=== PATIENT | female | born 1975 | race Caucasian/White ===

== ENCOUNTER 2018-10-16 23:48 | Emergency (ER) | payer BC ==
[~2018-10-16] VITALS: Ht 160 cm; Wt 83.1 kg
--- NOTE | 2018-10-17 00:08 | NUR ---
MD TO BEDSIDE FOR PT EVAL COMPLETE. PT TO HAVE IV AND MEDS. LAB AT BEDSIDE FOR BLOOD DRAW.
[2018-10-17] MEDS ORDERED: MORPHINE SULFATE 4 MG/ML, 1ML ONE (00:09)
[2018-10-17] MEDS ORDERED: ONDANSETRON 2MG/ML, 2ML ONE (00:09)
--- NOTE | 2018-10-17 00:10 | NUR ---
IV PLACED, PT RECIEVED MEDS PER ORDERS, SEE EMAR. VSS. PT AWAITING US.
[2018-10-17 00:25] LABS: BASOPHILS # (AUTO) 0.08 x10^3/uL (0-0.1); BASOPHILS % (AUTO) 1 % (0-1); EOSINOPHILS # (AUTO) 0.16 x10^3/uL (0-0.4); EOSINOPHILS % (AUTO) 2 % (1-7); LYMPHOCYTES # (AUTO) 2.47 x10^3/uL (1-3.4); LYMPHOCYTES % (AUTO) 27 % (22-44); MD NO; MEAN CORPUSCULAR HEMOGLOBIN 29.4 pg (27.0-34.8); MEAN CORPUSCULAR HGB CONC 33.7 g/dL (32.4-35.8); MEAN CORPUSCULAR VOLUME 87.4 fL (80-100); MEAN PLATELET VOLUME 9.6 fL (7.4-10.4); MONOCYTES # (AUTO) 0.68 x10^3/uL (0.2-0.8); MONOCYTES % (AUTO) 8 % (2-9); NEUTROPHILS # (AUTO) 5.75 x10^3/uL (1.8-6.8); NEUTROPHILS % (AUTO) 63 % (42-75); PLATELET COUNT 233 x10^3/uL (130-400); RED CELL DISTRIBUTION WIDTH 13.3 % (9.6-15.2)
[2018-10-17] MEDS ORDERED: MORPHINE SULFATE 4 MG/ML, 1ML IVPush PRN (00:30)
[2018-10-17] MEDS ORDERED: ONDANSETRON 2MG/ML, 2ML IVPush ONE (00:30)
[2018-10-17] MEDS ORDERED: SODIUM CHLORIDE FLUSH 10ML SYR IVF ONE (00:30)
[2018-10-17 00:31] LABS: ALANINE AMINOTRANSFERASE 21 U/L (12-78); ALBUMIN 3.7 g/dL (3.4-5.0); ANION GAP 6 mmol/L (5-15); CALCIUM 8.2 mg/dL (8.5-10.1); CHLORIDE 108 mmol/L (98-107); CREATININE 0.74 mg/dL (0.55-1.02)
[2018-10-17 00:36] LABS: ALKALINE PHOSPHATASE 130 U/L (45-117); BILIRUBIN,TOTAL 0.3 mg/dL (0.2-1.0); TOTAL PROTEIN 7.6 g/dL (6.4-8.2)
--- NOTE | 2018-10-17 00:45 | NUR ---
PT TO US.
--- NOTE | 2018-10-17 01:00 | NUR ---
PT RETURN FROM US, RESTING IN ROOM, FAMILY AT BEDSIDE.
--- NOTE | 2018-10-17 01:18 | NUR ---
PT REPORTS IMPROVED PAIN, VSS. PT AMBULATES TO RESTROOM WITH STEADY GAIT FOR URINE COLLECTION.
--- NOTE | 2018-10-17 01:44 | NUR ---
URINE SENT TO LAB. REPORT TO LULY ARORA FOR LUNCH RELIEF.
[2018-10-17 01:51] LABS: CULTURE INDICATED? YES; MICROSCOPIC AUTO
[2018-10-17 02:15] VITALS: BP 129/74
== END 2018-10-17 02:20 | disposition home or self-care (01) ==
LOC: ED 10-17 00:37
DX: K80.70 Calculus of gallbladder and bile duct without cholecystitis without obstruction (principal)
CPT/HCPCS: 36415; 76700; 80053; 81001; 83690; 84703; 85025; 87086; 96374; 96375; 99284; J2405

== ENCOUNTER 2018-11-06 14:24 | Outpatient (CLI) | payer BC ==
[2018-11-06] MEDS ORDERED: SUMA100T4 PO (14:54)
[2018-11-06] MEDS ORDERED: OMEP40CA6 PO (14:54)
[2018-11-06] MEDS ORDERED: NORT10CA PO (14:54)
[2018-11-06] MEDS ORDERED: PROMETHAZINE (14:54)
== END 2018-11-06 23:59 | disposition home or self-care (01) ==
LOC: STAR 14:24
PROVIDERS: ATTEND Surgery
DX: Z02.9 Encounter for administrative examinations, unspecified (principal)

== ENCOUNTER 2018-11-11 05:47 | Day surgery (SDC) | payer BC ==
[2018-11-06 14:49] VITALS: BP 128/76
[~2018-11-11] VITALS: Ht 160 cm; Wt 82.0 kg
[~2018-11-11 05:47] MED LIST: NORT10CA PO; OMEP40CA6 PO; PROMETHAZINE; SUMA100T4 PO
[2018-11-11] MEDS ORDERED: LACTATED RINGERS 1,000 ML IV SCH (06:45)
[2018-11-11] MEDS ORDERED: BUPIVACAINE/PF-EPI 0.5% 1:200K ONE (06:46)
[2018-11-11 06:47] VITALS: BP 128/76
[2018-11-11 06:50] LABS: HCG UR SG 1.011 (1.003-1.030)
[2018-11-11] MEDS ORDERED: FENTANYL PF 250 MCG/5ML ONE (07:18)
[2018-11-11] MEDS ORDERED: MIDAZOLAM 1 MG/ML, 2ML ONE (07:18)
[2018-11-11] MEDS ORDERED: LIDOCAINE-MPF 2% ,5ML ONE (07:20)
[2018-11-11] MEDS ORDERED: DEXAMETHASONE 4 MG/ML, 5ML ONE (07:20)
[2018-11-11] MEDS ORDERED: PROPOFOL 10 MG/ML, 20ML ONE (08:00)
[2018-11-11] MEDS ORDERED: SUCCINYLCHOLINE 20 MG/ML, 10ML ONE (08:00)
[2018-11-11] MEDS ORDERED: GLYCOPYRROLATE 0.2MG/1ML, 5ML ONE (08:00)
[2018-11-11] MEDS ORDERED: NEOSTIGMINE 1 MG/ML, 10ML ONE (08:00)
[2018-11-11] MEDS ORDERED: CEFAZOLIN 1,000 MG ONE (08:00)
[2018-11-11] MEDS ORDERED: ROCURONIUM 10MG/ML,5ML ONE (08:00)
[2018-11-11] MEDS ORDERED: ONDANSETRON 2MG/ML, 2ML ONE (08:00)
[2018-11-11] MEDS ORDERED: DIAZEPAM 5 MG/ML, 2ML IVPush PRN (08:30)
[2018-11-11] MEDS ORDERED: OXYcodone 5 MG/5 ML ORAL.SOL UDC PO PRN (08:30)
[2018-11-11] MEDS ORDERED: PROMETHAZINE 25 MG/ML, 1ML IV PRN (08:30)
[2018-11-11] MEDS ORDERED: ACETAMINOPHEN 325 MG TABLET PO PRN (08:30)
[2018-11-11] MEDS ORDERED: ONDANSETRON 2MG/ML, 2ML IV PRN (08:30)
[2018-11-11] MEDS ORDERED: HYDROmorphone 2 MG/ML, 1ML IVPush PRN (08:30)
[2018-11-11] MEDS ORDERED: ONDANSETRON ODT 8 MG PO PRN (08:30)
[2018-11-11] MEDS ORDERED: FENTANYL PF 100 MCG/2ML IV PRN (08:30)
[2018-11-11] MEDS ORDERED: OXYcodone 5 MG/5 ML ORAL.SOL UDC ONE (08:37)
[2018-11-11] MEDS ORDERED: KETOROLAC 30 MG/1 ML ONE (08:37)
[2018-11-11] MEDS ORDERED: FENTANYL PF 100 MCG/2ML ONE (08:37)
[2018-11-11] MEDS ORDERED: KETOROLAC 30 MG/1 ML IVPush ONE (09:00)
[2018-11-11] MEDS ORDERED: KETOROLAC 30 MG/1 ML IVPush PRN (09:00)
== END 2018-11-11 11:36 | disposition home or self-care (01) ==
LOC: OUT 05:47
PROVIDERS: ATTEND Surgery
DX: K80.10 Calculus of gallbladder with chronic cholecystitis without obstruction (principal); K21.9 Gastro-esophageal reflux disease without esophagitis; G43.909 Migraine, unspecified, not intractable, without status migrainosus; Z98.51 Tubal ligation status; Z98.890 Other specified postprocedural states; Z88.5 Allergy status to narcotic agent
CPT/HCPCS: 47562; 81025; 88304; J0330; J0690; J1100; J1885; J2250; J2405; J2704; J2710; J3010; J3490; J7120

== ENCOUNTER 2018-11-12 03:38 | Emergency (ER) | payer BC ==
[2018-11-12] MEDS ORDERED: SODIUM CHLORIDE 0.9% 1,000ML IVBOLUS ONE (04:00)
[2018-11-12] MEDS ORDERED: PROMETHAZINE 25 MG/ML, 1ML IM ONE (04:00)
[2018-11-12] MEDS ORDERED: ONDANSETRON 2MG/ML, 2ML IVPush ONE (04:00)
[2018-11-12] MEDS ORDERED: SODIUM CHLORIDE FLUSH 10ML SYR IVF ONE (04:00)
[2018-11-12] MEDS ORDERED: MORPHINE SULFATE 4 MG/ML, 1ML IVPush PRN (04:00)
[2018-11-12] MEDS ORDERED: ONDANSETRON 2MG/ML, 2ML ONE (04:01)
[2018-11-12] MEDS ORDERED: PROMETHAZINE 25 MG/ML, 1ML ONE (04:01)
[2018-11-12] MEDS ORDERED: MORPHINE SULFATE 4 MG/ML, 1ML ONE (04:02)
--- NOTE | 2018-11-12 04:14 | NUR ---
PT HERE FOR N/V, HEADACHE AND PAIN POST OP. PIV STARTED AND PT MEDICATED. FLUIDS RUNNING. VSS. LAB AT BEDSIDE. CALL LIGHT IN REACH
[2018-11-12 04:28] LABS: BASOPHILS # (AUTO) 0.01 x10^3/uL (0-0.1); BASOPHILS % (AUTO) 0 % (0-1); EOSINOPHILS % (AUTO) 0 % (1-7); LYMPHOCYTES # (AUTO) 0.87 x10^3/uL (1-3.4); LYMPHOCYTES % (AUTO) 8 % (22-44); MD NO; MEAN CORPUSCULAR HEMOGLOBIN 29.3 pg (27.0-34.8); MEAN CORPUSCULAR HGB CONC 33.3 g/dL (32.4-35.8); MEAN CORPUSCULAR VOLUME 87.8 fL (80-100); MEAN PLATELET VOLUME 9.7 fL (7.4-10.4); MONOCYTES # (AUTO) 0.54 x10^3/uL (0.2-0.8); MONOCYTES % (AUTO) 5 % (2-9); NEUTROPHILS # (AUTO) 9.73 x10^3/uL (1.8-6.8); NEUTROPHILS % (AUTO) 87 % (42-75); PLATELET COUNT 216 x10^3/uL (130-400); RED BLOOD COUNT 4.65 x10^6/uL (3.82-5.3); RED CELL DISTRIBUTION WIDTH 13.3 % (9.6-15.2)
[2018-11-12 04:39] LABS: ALBUMIN 3.5 g/dL (3.4-5.0); ANION GAP 9 mmol/L (5-15); CALCIUM 8.3 mg/dL (8.5-10.1); CHLORIDE 105 mmol/L (98-107)
[2018-11-12 04:45] LABS: ALANINE AMINOTRANSFERASE 51 U/L (12-78); ALKALINE PHOSPHATASE 133 U/L (45-117); BILIRUBIN,TOTAL 0.5 mg/dL (0.2-1.0); CREATININE 0.56 mg/dL (0.55-1.02); TOTAL PROTEIN 7.6 g/dL (6.4-8.2)
[2018-11-12 04:48] VITALS: BP 119/76
--- NOTE | 2018-11-12 05:27 | NUR ---
Patient given discharge instructions and they have confirmed that they understand the instructions. Patient ambulatory with steady gait.
== END 2018-11-12 05:30 | disposition home or self-care (01) ==
LOC: ED 05:20
DX: E86.0 Dehydration (principal); R11.2 Nausea with vomiting, unspecified; Z90.49 Acquired absence of other specified parts of digestive tract; Z98.51 Tubal ligation status
CPT/HCPCS: 36415; 80053; 83690; 84703; 85025; 96361; 96372; 96374; 96375; 99283; J2405; J2550; J7030

== ENCOUNTER 2018-11-16 22:12 | Emergency (ER) | payer BC ==
[~2018-11-16] VITALS: Ht 160 cm; Wt 79.3 kg
[2018-11-16] MEDS ORDERED: PROM25SU34 RC (22:35)
[2018-11-16] MEDS ORDERED: OXYC1TAB7 PO (22:35)
[2018-11-16] MEDS ORDERED: PROM25SU PR (22:36)
--- NOTE | 2018-11-16 22:40 | NUR ---
FIRST CONTACT WITH PT. PT C/O NAUSEA/VOMITTING FOR A FEW DAYS. PT STATES ' I CAN'T EAT OR DRINK FOR A FEW DAYS." PT HAD GALLBLADDER OUT ON FRI. PT'S AOX4. RESPS EVEN AND UNLABORED. PT DENIES D. EDMD AT BEDSIDE TO ASSESS AT THIS TIME. BP/SPO2 MONITORS IN PLACE. CALL LIGHT WITHIN REACH.
[2018-11-16] MEDS ORDERED: PROMETHAZINE 25 MG/ML, 1ML IM ONE (23:00)
[2018-11-16 23:13] LABS: BASOPHILS # (AUTO) 0.03 x10^3/uL (0-0.1); BASOPHILS % (AUTO) 0 % (0-1); EOSINOPHILS # (AUTO) 0.07 x10^3/uL (0-0.4); EOSINOPHILS % (AUTO) 1 % (1-7); LYMPHOCYTES # (AUTO) 1.76 x10^3/uL (1-3.4); LYMPHOCYTES % (AUTO) 21 % (22-44); MD NO; MEAN CORPUSCULAR HEMOGLOBIN 29.5 pg (27.0-34.8); MEAN CORPUSCULAR HGB CONC 33.7 g/dL (32.4-35.8); MEAN CORPUSCULAR VOLUME 87.5 fL (80-100); MEAN PLATELET VOLUME 9.5 fL (7.4-10.4); MONOCYTES # (AUTO) 0.47 x10^3/uL (0.2-0.8); MONOCYTES % (AUTO) 6 % (2-9); NEUTROPHILS # (AUTO) 6.14 x10^3/uL (1.8-6.8); NEUTROPHILS % (AUTO) 73 % (42-75); PLATELET COUNT 264 x10^3/uL (130-400); RED BLOOD COUNT 5.14 x10^6/uL (3.82-5.3); RED CELL DISTRIBUTION WIDTH 12.9 % (9.6-15.2)
[2018-11-16 23:17] LABS: ALANINE AMINOTRANSFERASE 35 U/L (12-78); ALBUMIN 3.5 g/dL (3.4-5.0); ANION GAP 6 mmol/L (5-15); CALCIUM 8.8 mg/dL (8.5-10.1); CHLORIDE 108 mmol/L (98-107)
[2018-11-16 23:18] LABS: ALKALINE PHOSPHATASE 146 U/L (45-117); BILIRUBIN,TOTAL 0.7 mg/dL (0.2-1.0); TOTAL PROTEIN 8.1 g/dL (6.4-8.2)
[2018-11-16] MEDS ORDERED: PROMETHAZINE 25 MG/ML, 1ML ONE (23:22)
[2018-11-16] MEDS ORDERED: MORPHINE SULFATE 4 MG/ML, 1ML ONE ×2 (23:22→23:49)
[2018-11-16] MEDS: MORPHINE SULFATE 4 MG/ML, 1ML IVPush PRN ×2 (23:27→23:51)
--- NOTE | 2018-11-16 23:30 | NUR ---
PT MEDICATED PER EMAR. PT TOLERATED WELL. PT'S AOX4. RESPS EVEN AND UNLABORED.
--- NOTE | 2018-11-16 23:46 | NUR ---
PT'S PAIN LEVEL REDUCED TO 5/10. HOWEVER, PT REQUESTING PAIN MED AT THIS TIME. PT'S AOX4. RESPS EVEN AND UNLABORED. BP/SPO2 MOINTORS IN PLACE. CALL LIGHT WITHIN REACH.
--- NOTE | 2018-11-16 23:53 | NUR ---
PT MEDICATED PER EMAR FOR PAIN(2ND DOSE OF MORPHINE) AT THIS TIME. PT TOLERATED WELL.
--- NOTE | 2018-11-16 23:59 | NUR ---
PT PROVIDED WATER FOR PO CHALLENGE. WILL CONTINUE TO MONITOR.
--- NOTE | 2018-11-17 00:13 | NUR ---
PT'S PAIN LEVEL REDUCED TO 3/10 AT THIS TIME. PT HAS BEEN DRINKING WATER AND HASN'T HAVE VOMIT YET. PT STATES " I FEEL MUCH BETTER." EDMD AT BEDSIDE TO EXPLAIN ALL RESULTS.
[2018-11-17 00:25] VITALS: BP 128/73
--- NOTE | 2018-11-17 00:30 | NUR ---
PT GIVEN DC INSTRUCTIONS AND SCRIPT. PT EDUCATED REGARDING DC MEDICATION. PT'SAOX4. RESPS EVEN AND UNLABORED. PT AMB TO DC WITH STEADY GAIT. NO ACUTE DISTRESS AT DC.
== END 2018-11-17 00:28 | disposition home or self-care (01) ==
LOC: ED 23:06
DX: R11.2 Nausea with vomiting, unspecified (principal); R10.13 Epigastric pain; R50.9 Fever, unspecified; Z90.49 Acquired absence of other specified parts of digestive tract; Z98.51 Tubal ligation status
CPT/HCPCS: 36415; 76700; 80053; 83690; 85025; 96372; 96374; 99284; J2550